=== PATIENT | female | born 1990 | race African-American/Black ===

== ENCOUNTER 2016-09-04 11:32 | Emergency (ER) | payer OTHER ==
[~2016-09-04] VITALS: Ht 170.2 cm; Wt 90.0 kg
[2016-09-04 11:34] VITALS: BP 113/64; PULSE 104; RESP 15; TEMP 98; O2SAT 96
[2016-09-04] MEDS ORDERED: MAGICADU2 SWISH-SPIT (12:32)
[2016-09-04] MEDS ORDERED: IBUP800T23 PO (12:32)
[2016-09-04] MEDS ORDERED: AMOX500T PO (12:32)
--- NOTE | 2016-09-04 12:32 | PD ---
HPI Chief Complaint: ENT Complaint Time Seen by Provider: 12:30 Travel History International Travel<30 days: No Contact w/Intl Traveler<30days: No Traveled to known affect area: No History of Present Illness HPI 26-year-old female presents to the emergency department with complaint of sore throat 6 days. Reports subjective fever. Cannot report a MAXIMUM TEMPERATURE that she has not taken her temperature. Denies nasal congestion, ear pain, cough. Denies lump in throat, difficulty swallowing, unusual drooling. Reports painful swallowing. Reports voice is hoarse. Reports pain to anterior cervical lymph nodes. Has tried heek-fhm-wlnnsja medications with no relief of symptoms. No others with similar symptoms. Denies allergies. No other modifying factors or associated signs and symptoms. PFSH Past Medical History Autoimmune Disease: No Blood Disorders: No Cardiovascular Problems: No Diminished Hearing: No Gastrointestinal Disorders: No Genitourinary: No Musculoskeletal: No Neurologic: No Psychiatric: No Respiratory: No Immunizations Current: No Sickle Cell Disease: No ?: Not LMP: 07/2016 : 1 Para: 1 Miscarriage: 0 : 0 Past Surgical History Other Surgery: No Social History Alcohol Use: No Tobacco Use: Yes (3 cig/day) Substance Use: Yes (MARIJUANA. ) Allergies-Medications (Allergen,Severity, Reaction): Coded Allergies: No Known Allergies (Verified , 09/04/16) Reported Meds & Prescriptions Reported Meds & Active Scripts Active Ibuprofen 800 Mg Tab 800 Mg PO Q6HR PRN Magic Mouthwash Adult Liq (Multi-Ingredient Mouthwash/Gargle) 120 Ml Susp 5 Ml SWISH-SPIT Q3HR PRN Each 5mL contains: Nystatin 200,000units, Diphenhydramine 4.25mg, Viscous Lidocaine 10mg, Garcia syrup 0.8 mL Amoxicillin 500 Mg Tab 500 Mg PO BID 10 Days Review of Systems Except as stated in HPI: all other systems reviewed are Neg Physical Exam Narrative GENERAL: Well-nourished, well-developed female patient, in no acute distress; afebrile, nontoxic-appearing SKIN: Warm and dry. No rash. HEAD: Atraumatic. Normocephalic. EYES: Pupils equal and round at 3 mm with brisk reaction. No scleral icterus. No injection or drainage. PERRLA. ENT: Mucosa pink and dry. Pharynx with 2+ tonsils; with erythema, exudate, and edema. No Uvular edema. No uvular, palatal, or tonsillar deviation. Airway patent. Voice is hoarse. EARS: Bilateral pinnae and external canals appear within normal limits. Bilateral tympanic membranes without erythema, dullness or perforation.. NECK: Trachea midline. Anterior cervical lymphadenopathy and tenderness. CARDIOVASCULAR: Regular rate and rhythm. No murmur appreciated. RESPIRATORY: No accessory muscle use. Clear to auscultation. Breath sounds equal bilaterally. GASTROINTESTINAL: Abdomen soft, non-tender, nondistended. Hepatic and splenic margins not palpable. Bowel sounds are active 4 quadrants. MUSCULOSKELETAL: No obvious deformities. No clubbing. No cyanosis. No edema. NEUROLOGICAL: Awake and alert. Oriented 3. No obvious cranial nerve deficits. Motor grossly within normal limits. Normal speech. Moves all extremities. PSYCHIATRIC: Appropriate mood and affect; insight and judgment normal. Data Data Last Documented VS Vital Signs Date Time Temp Pulse Resp B/P Pulse Ox O2 Delivery O2 Flow Rate FiO2 09/04/16 11:34 98.0 104 15 113/64 96 Orders Ibuprofen (Motrin) (09/04/16 12:45) [facility] Medical Decision Making Medical Screen Exam Complete: Yes Emergency Medical Condition: Yes Medical Record Reviewed: Yes Differential Diagnosis Strep pharyngitis, viral pharyngitis, less likely peritonsillar abscess Narrative Course 26-year-old female physical exam consistent with exudative pharyngitis. Denies lump in throat, unusual drooling, difficulty swallowing. Patient is afebrile and nontoxic-appearing. Heart rate recheck on physical exam is approximately 80 -90 bpm. Ibuprofen administered in ER. Amoxicillin, Magic mouthwash, ibuprofen prescribed for home. Patient is medically cleared and stable for discharge. Discussed reasons to return to the emergency department. Instructed patient to follow up with primary care provider. Patient agrees with treatment plan. The patients vital signs are stable and the patient is stable for outpatient follow-up and treatment. Patient discharged home, stable and in no acute distress. Diagnosis Primary Impression: Exudative pharyngitis Referrals: Primary Care Physician Patient Instructions: General Instructions, Pharyngitis (ED) Departure Forms: Tests/Procedures, Work Release Enter return to work date: Sep 06, 2016 Additional Instructions: Take Antibiotics as prescribed and complete full course of antibiotics Get plenty of sleep/rest Rest your voice Drink plenty of fluids to prevent dehydration Use warm saltwater gargles to soothe throat pain Use an air humidifier/turn off ceiling fans Use throat lozenges as needed for sore throat Use ibuprofen or acetaminophen as needed to relieve pain and fever Follow-up with your primary care provider within 2-4 days Return immediately to the emergency department with worsening of symptoms Med/Other Pt SpecificInfo: Prescription(s) given Scripts Ibuprofen 800 Mg [id number] Mg PO Q6HR PRN (PAIN) #30 TAB Ref 0 Prov:Silvia Wilkinson 09/04/16 Loaytcyj-Ttuzfipbvzeunkn-Kpgfpxtul Liq (Magic Mouthwash Adult Liq)120 Ml Susp5 Ml SWISH-SPIT Q3HR PRN (SORE THROAT) #120 ML Ref 0 Each 5mL contains: Nystatin 200,000units, Diphenhydramine 4.25mg, Viscous Lidocaine 10mg, Garcia syrup 0.8 mL Prov:Silvia Wilkinson 09/04/16 Amoxicillin 500 Mg [id number] Mg PO BID 10 Days Ref 0 Prov:Silvia Wilkinson 09/04/16 Disposition: 01 DISCHARGE HOME Condition: Stable Silvia Wilkinson Sep 04, 2016 12:32
[2016-09-04] MEDS ORDERED: IBUPROFEN 800 MG TAB PO ONE (12:45)
== END 2016-09-04 12:49 | disposition home or self-care (01) ==
LOC: NEPB 11:32
DX: J02.9 Acute pharyngitis, unspecified (principal)
CPT/HCPCS: 99283

== ENCOUNTER → 2016-09-05 | Outpatient (CLI) | payer MEDICAID, OTHER ==
[~2016-09-05] MED LIST: AMOX500C PO; AMOX500T PO; IBUP800T23 PO; MAGICADU2 SWISH-SPIT; MAGICPED SWISH-SWAL; MOME17I EACH NARE
[2016-09-05 13:29] LABS: AUTOMATED NEUTROPHIL # 2.5 TH/MM3 (1.8-7.7); BASOPHIL # 0.1 TH/MM3 (0-0.2); BASOPHIL % 1.1 % (0.0-2.0); EOSINOPHIL # 0.1 TH/MM3 (0-0.4); EOSINOPHIL % 1.6 % (0.0-4.0); HEMATOCRIT 42.8 % (35.0-46.0); HEMO FLAGS DIFF FINAL; LYMPHOCYTE # 2.4 TH/MM3 (1.0-4.8); MEAN CELL VOLUME 89.7 FL (80.0-100.0); MEAN CORPUSCULAR HEMOGLOBIN 30.3 PG (27.0-34.0); MEAN CORPUSCULAR HGB CONC 33.8 % (32.0-36.0); MONO % 9.4 % (0.0-8.0); NEUT % 44.9 % (16.0-70.0); PLATELET COUNT 430 TH/MM3 (150-450); RED BLOOD COUNT 4.78 MIL/MM3 (4.00-5.30); RED CELL DISTRIBUTION WIDTH 12.8 % (11.6-17.2); WHITE BLOOD COUNT 5.6 TH/MM3 (4.0-11.0)
[2016-09-05 14:07] LABS: ALKALINE PHOSPHATASE 66 U/L (45-117); ALT (GPT) 13 U/L (10-53); ANION GAP 7 MEQ/L (5-15); AST (GOT) 12 U/L (15-37); BICARBONATE 28.5 MEQ/L (21.0-32.0); BLOOD UREA NITROGEN 9 MG/DL (7-18); CHLORIDE 103 MEQ/L (98-107); GLOMERULAR FILTRATION RATE 94 ML/MIN (>89); GLUCOSE,FASTING 86 MG/DL (74-99); HDL CHOLESTEROL 60.1 MG/DL (40.0-60.0); LDL CHOLESTEROL 42 MG/DL (0-99); SODIUM (NA) 138 MEQ/L (136-145); TOTAL BILIRUBIN ADULT 0.4 MG/DL (0.2-1.0)
== END ==
LOC: CLAB 13:13
PROVIDERS: ATTEND Nurse Practitioner Family
DX: E66.9 Obesity, unspecified (principal)
CPT/HCPCS: 36415; 80053; 80061; 84443; 85025

== ENCOUNTER 2016-10-07 09:44 | Emergency (ER) | payer OTHER ==
[~2016-10-07] VITALS: Ht 177.8 cm; Wt 85.0 kg
[~2016-10-07 09:44] MED LIST changes: -AMOX500C PO; -AMOX500T PO; -MAGICPED SWISH-SWAL; -MOME17I EACH NARE
[2016-10-07 09:46] VITALS: BP 129/78; PULSE 74; RESP 15; TEMP 98.2; O2SAT 98
[2016-10-07] MEDS ORDERED: MAGICPED SWISH-SWAL (10:46)
[2016-10-07] MEDS ORDERED: MOME17I EACH NARE (10:46)
[2016-10-07] MEDS ORDERED: AMOX500C PO (10:46)
--- NOTE | 2016-10-07 10:46 | PD ---
HPI Chief Complaint: ENT Complaint Time Seen by Provider: 10:43 Travel History International Travel<30 days: No Contact w/Intl Traveler<30days: No Traveled to known affect area: No History of Present Illness HPI 26-year-old female presents to the emergency department with complaint of nasal congestion, facial pressure, sore throat times one week. Denies fever, chills, nausea, vomiting. Denies chest pain, shortness of breath, abdominal pain. Denies cough, ear pain. Denies body aches, headache. Denies lump in throat, difficulty swallowing, unusual drooling. Reports burning sensation in her throat. Reports swollen glands in her neck. Has tried multiple over-the- counter medications with no resolution of symptoms. No one else with similar symptoms. No known allergies. No other modifying factors or associated signs and symptoms. PFSH Past Medical History Autoimmune Disease: No Blood Disorders: No Cardiovascular Problems: No Diminished Hearing: No Gastrointestinal Disorders: No Genitourinary: No Musculoskeletal: No Neurologic: No Psychiatric: No Respiratory: No Immunizations Current: No Sickle Cell Disease: No ?: Not : 1 Para: 1 Miscarriage: 0 : 0 Past Surgical History Other Surgery: No Social History Alcohol Use: No Tobacco Use: Yes (3 cig/day) Substance Use: Yes (MARIJUANA. ) Allergies-Medications (Allergen,Severity, Reaction): Coded Allergies: No Known Allergies (Verified , 10/07/16) Reported Meds & Prescriptions Reported Meds & Active Scripts Active Magic Mouthwash Pediatric/Adult Liq (Lidocaine/Diphenhydr/Alum/Mg/Simeth) 60 Ml Susp 5 Ml SWISH-SWAL ACHS PRN Each 5mL contains: Diphenydramine 4.5mg, Viscous Lidocaine 2% 10mg, Maalox Advanced Regular Strength 2.7ml Nasonex Nasal [place] (Mometasone Furoate) 50 Mcg/Act Naspr 2 [place] EACH NARE DAILY PRN Amoxicillin 500 Mg Cap 500 Mg PO BID 10 Days Ibuprofen 800 Mg Tab 800 Mg PO Q6HR PRN Magic Mouthwash Adult Liq (Multi-Ingredient Mouthwash/Gargle) 120 Ml Susp 5 Ml SWISH-SPIT Q3HR PRN Each 5mL contains: Nystatin 200,000units, Diphenhydramine 4.25mg, Viscous Lidocaine 10mg, Garcia syrup 0.8 mL Review of Systems Except as stated in HPI: all other systems reviewed are Neg Physical Exam Narrative GENERAL: Well-nourished, well-developed female patient, in no acute distress; afebrile, nontoxic-appearing SKIN: Warm and dry. No rash. HEAD: Atraumatic. Normocephalic. EYES: Pupils equal and round at 3 mm with brisk reaction. No scleral icterus. No injection or drainage. PERRLA. ENT: Mucosa pink and moist. Oropharynx is with erythema; without edema or exudate. No uvular edema. No uvular, palatal, or tonsillar deviation. Airway patent. EARS: Bilateral pinnae and external canals appear within normal limits. Bilateral tympanic membranes without erythema, dullness or perforation. NECK: Trachea midline. No lymphadenopathy. CARDIOVASCULAR: Regular rate and rhythm. No murmur appreciated. RESPIRATORY: No accessory muscle use. Clear to auscultation. Breath sounds equal bilaterally. GASTROINTESTINAL: Abdomen soft, non-tender, nondistended. Hepatic and splenic margins not palpable. Bowel sounds are active 4 quadrants. MUSCULOSKELETAL: No obvious deformities. No clubbing. No cyanosis. No edema. NEUROLOGICAL: Awake and alert. Oriented 3. No obvious cranial nerve deficits. Motor grossly within normal limits. Normal speech. Moves all extremities. 5/5 strength to all extremities. PSYCHIATRIC: Appropriate mood and affect; insight and judgment normal. Data Data Last Documented VS Vital Signs Date Time Temp Pulse Resp B/P Pulse Ox O2 Delivery O2 Flow Rate FiO2 10/07/16 09:46 98.2 74 15 129/78 98 MDM Medical Decision Making Medical Screen Exam Complete: Yes Emergency Medical Condition: Yes Medical Record Reviewed: Yes Differential Diagnosis Upper respiratory infection, sinusitis, pharyngitis, influenza Narrative Course 26-year-old female physical examination consistent with upper respiratory infection. Patient is afebrile and nontoxic appearing. I will prescribe antibiotics secondary to length of illness times one week. Amoxicillin, Magic mouthwash, Nasonex nasal spray prescribed for home. Patient verbalizes understanding and agreement with treatment plan. Patient is medically cleared and stable for discharge. Discussed reasons to return to the emergency department. Instructed patient to follow up with primary care provider. Patient agrees with treatment plan. The patients vital signs are stable and the patient is stable for outpatient follow-up and treatment. Patient discharged home, stable and in no acute distress. Diagnosis Primary Impression: Upper respiratory infection Qualified Code: J06.9 - Upper respiratory tract infection, unspecified type Referrals: Primary Care Physician Patient Instructions: General Instructions, Upper Respiratory Infection (ED) Departure Forms: Tests/Procedures, Work Release Enter return to work date: Oct 08, 2016 Additional Instructions: Take Antibiotics as prescribed and complete full course of antibiotics; afebrile , nontoxic-appearing Get plenty of sleep/rest Rest your voice Drink plenty of fluids to prevent dehydration Use warm saltwater gargles to soothe throat pain Use an air humidifier/turn off ceiling fans Use throat lozenges as needed for sore throat Use ibuprofen or acetaminophen as needed to relieve pain and fever Follow-up with your primary care provider within 2-4 days Return immediately to the emergency department with worsening of symptoms Med/Other Pt SpecificInfo: Prescription(s) given Scripts Rwedwbwxqbfuwal-Nbtorewfh-Qem-Alum-Simeth Liq (Magic Mouthwash Pediatric/Adult Liq)60 Ml Susp5 Ml SWISH-SWAL ACHS PRN (SORE THROAT) #60 ML Ref 0 Each 5mL contains: Diphenydramine 4.5mg, Viscous Lidocaine 2% 10mg, Maalox Advanced Regular Strength 2.7ml Prov:Silvia Wilkinson 10/07/16 Mometasone Nasal [place] (Nasonex Nasal [place])50 Mcg/Act Naspr2 [place] EACH NARE DAILY PRN (NASAL CONGESTION) #1 BOTTLE Ref 0 Prov:Silvia Wilkinson 10/07/16 Amoxicillin 500 Mg [id number] Mg PO BID 10 Days Ref 0 Prov:Silvia Wilkinson 10/07/16 Disposition: 01 DISCHARGE HOME Condition: Stable Silvia Wilkinson Oct 07, 2016 10:46
== END 2016-10-07 10:58 | disposition home or self-care (01) ==
LOC: NETRI 09:44
DX: J06.9 Acute upper respiratory infection, unspecified (principal); R59.0 Localized enlarged lymph nodes; Z72.0 Tobacco use
CPT/HCPCS: 99282

== ENCOUNTER 2016-11-02 20:44 | Emergency (ER) | payer OTHER ==
[~2016-11-02] VITALS: Ht 170.2 cm; Wt 59.1 kg
[~2016-11-02 20:44] MED LIST changes: +AMOX500C PO; +MAGICPED SWISH-SWAL; +MOME17I EACH NARE
[2016-11-02 20:46] VITALS: BP 126/70; PULSE 74; RESP 15; TEMP 98.6; O2SAT 100
== END 2016-11-02 22:41 | disposition left against medical advice (07) ==
LOC: NED 20:44
DX: M54.9 Dorsalgia, unspecified (principal)
CPT/HCPCS: 99281

== ENCOUNTER 2017-05-17 09:35 | Emergency (ER) | payer OTHER ==
[~2017-05-17] VITALS: Ht 170.2 cm; Wt 92.0 kg
[2017-05-17 09:36] VITALS: BP 152/69; PULSE 63; RESP 18; TEMP 98.9; O2SAT 100
[2017-05-17] MEDS ORDERED: PENI500T PO (10:55)
--- NOTE | 2017-05-17 10:55 | PD ---
HPI Chief Complaint: Oral / Dental Pain or Problem Time Seen by Provider: 10:22 Travel History International Travel<30 days: No Contact w/Intl Traveler<30days: No Traveled to known affect area: No History of Present Illness HPI This is a 27-year-old woman presents emergency Department with dental pain. She has pain and swelling. Looks well. Symptoms ongoing for the past several days. No fevers or chills. She's had dental pain in this area before. More the right side of her face radiates into the cheek area. History Past Medical History Medical History: Denies Significant Hx LMP: 04/14/17 : 1 Para: 1 Past Surgical History Surgical History: No Previous Surgery Social History Alcohol Use: No Tobacco Use: No Allergies-Medications (Allergen,Severity, Reaction): Coded Allergies: No Known Allergies (Verified , 05/17/17) Reported Meds & Prescriptions Reported Meds & Active Scripts Active Magic Mouthwash Pediatric/Adult Liq (Lidocaine/Diphenhydr/Alum/Mg/Simeth) 60 Ml Susp 5 Ml SWISH-SWAL ACHS PRN Each 5mL contains: Diphenydramine 4.5mg, Viscous Lidocaine 2% 10mg, Maalox Advanced Regular Strength 2.7ml Nasonex Nasal Doyle (Mometasone Furoate) 50 Mcg/Act Naspr 2 [place] EACH NARE DAILY PRN Amoxicillin 500 Mg Cap 500 Mg PO BID 10 Days Ibuprofen 800 Mg Tab 800 Mg PO Q6HR PRN Magic Mouthwash Adult Liq (Multi-Ingredient Mouthwash/Gargle) 120 Ml Susp 5 Ml SWISH-SPIT Q3HR PRN Each 5mL contains: Nystatin 200,000units, Diphenhydramine 4.25mg, Viscous Lidocaine 10mg, Garcia syrup 0.8 mL Review of Systems Except as stated in HPI: all other systems reviewed are Neg Physical Exam Narrative GENERAL: Well-appearing 27 year-old woman, uncomfortable but nontoxic. SKIN: Focused skin assessment warm/dry. NECK: Trachea midline. No JVD. HEENT: Pain and tenderness on the first molar in the upper right. Is a little bit of fullness to the gum. Is no obvious fluctuance. No purulent drainage. CARDIOVASCULAR: Regular rate and rhythm. No murmur appreciated. RESPIRATORY: No accessory muscle use. Clear to auscultation. Breath sounds equal bilaterally. GASTROINTESTINAL: Abdomen soft, non-tender, nondistended. Hepatic and splenic margins not palpable. MUSCULOSKELETAL: No obvious deformities. No edema. NEUROLOGICAL: Awake and alert. No obvious cranial nerve deficits. Motor grossly within normal limits. Normal speech. Data Data Last Documented VS Vital Signs Date Time Temp Pulse Resp B/P (MAP) Pulse Ox O2 Delivery O2 Flow Rate FiO2 05/17/17 09:36 98.9 63 18 152/69 (96) 100 Room Air Orders Orders Ketorolac Inj (Toradol Inj) (05/17/17 11:00) Penicillin V Potassium (Veetids) (05/17/17 11:00) [facility] Medical Decision Making Medical Screen Exam Complete: Yes Emergency Medical Condition: Yes Differential Diagnosis Dental pain, abscess, infection, other Narrative Course 27 year-old woman with dental infection. A little bit of swelling in the buccal side of her gingiva. No definite abscess at this point. Recommend antibiotics. Dental follow-up. Diagnosis Primary Impression: Dental infection Additional Instructions: Take antibiotics as prescribed. Take Naprosyn or ibuprofen as needed for pain and swelling. Follow-up with your dentist the next one to 2 weeks. Return to the emergency department for any worsening pain redness swelling fevers or any other new or worsening symptoms. Med/Other Pt SpecificInfo: Prescription(s) given Scripts Penicillin V Potassium (Penicillin V Potassium) 500 Mg Tab 500 MG PO Q8H for Infection, #14 TAB 0 Refills Prov: Angelo James MD 05/17/17 Disposition: 01 DISCHARGE HOME Condition: Stable Angelo James MD May 17, 2017 10:55
[2017-05-17] MEDS ORDERED: PENICILLIN V POTASSIUM 500 MG TAB PO ONE (11:00)
[2017-05-17] MEDS ORDERED: KETOROLAC TROMETHAMINE 60 MG/2 ML (IM) VIAL IM ONE (11:00)
== END 2017-05-17 11:18 | disposition home or self-care (01) ==
LOC: NEPD 09:35
DX: K04.7 Periapical abscess without sinus (principal)
CPT/HCPCS: 96372; 99284; J1885

== ENCOUNTER 2017-11-11 00:58 | Emergency (ER) | payer OTHER ==
[~2017-11-11 00:58] MED LIST changes: +IBUP1TAB7 PO; -IBUP800T23 PO; +PENI500T PO
== END 2017-11-11 01:15 | disposition left against medical advice (07) ==
LOC: NED 00:58
DX: J02.9 Acute pharyngitis, unspecified (principal)
CPT/HCPCS: 99281